=== PATIENT | female | born 1990 | race Caucasian/White ===

== ENCOUNTER 2016-08-10 07:36 | Emergency (ER) | payer OTHER ==
[~2016-08-10] VITALS: Ht 170.2 cm; Wt 88.5 kg
[2016-08-10 09:24] LABS: CONTROL LINE HCG INT CTR LINE PRESENT
[2016-08-10 09:55] LABS: BASO % 0.3 % (0.0-1.0); EOS # 0.2 K/mm3 (0.0-0.50); EOS % 2.3 % (0.0-3.0); LARGE UNSTAINED CELL # 0.1 K/mm3 (0.0-0.4); LARGE UNSTAINED CELL % 0.9 % (0.0-4.0); LYMPH # 2.5 K/mm3 (1.5-6.5); LYMPH % 29.6 % (24.0-44.0); MEAN CORPUSCULAR HEMOGLOBIN 28.4 pg (27.0-33.0); MEAN CORPUSCULAR HGB CONC 33.5 g/dl (32.0-36.5); MEAN CORPUSCULAR VOLUME 84.9 fl (80.0-96.0); MONO # 0.4 K/mm3 (0.0-0.8); MONO % 4.9 % (0.0-5.0); NEUTROPHILS % 61.9 % (36.0-66.0); PLATELET COUNT, AUTOMATED 210 k/mm3 (150-450); RED CELL DISTRIBUTION WIDTH 12.9 % (11.5-14.5); WHITE BLOOD COUNT 8.1 K/mm3 (4.0-10.0)
--- NOTE | 2016-08-10 10:47 | REP ---
Clinical: Hematuria and bilateral pain. Findings: Lung bases clear. Visualized heart and pericardium normal. Liver, spleen, pancreas, gallbladder, bilateral adrenal glands and kidneys are normal. Specifically, there is no perinephric stranding, hydroureteronephrosis, intrarenal or obstructing ureteral calculi. The enteric system is without obstruction or acute inflammatory process and a normal terminal ileum and appendix are identified in the right lower quadrant. Few sigmoid diverticula noted without acute diverticulitis. Pelvis demonstrates normal bladder and age-appropriate uterus/adnexa. No ascites. No free air. No adenopathy. Abdominal aorta without aneurysm. Musculoskeletal structures demonstrate a 13 mm bone island in the left kelby-sacrum. Impression: No acute intra-abdominal or pelvic pathology appreciated. Signed by Corby Ontiveros MD 08/10/2016 10:38 A
[2016-08-10 11:13] VITALS: BP 120/75
== END 2016-08-10 11:13 | disposition home or self-care (01) ==
LOC: M ED 10:35
DX: N91.0 Primary amenorrhea (principal); Z88.6 Allergy status to analgesic agent